=== PATIENT | female | born 1955 | race Two or more races ===

== ENCOUNTER 2022-06-14 12:56 | Inpatient (IN) | payer MEDICAID ==
[2022-06-14] VITALS (7 sets, daily range): BP systolic 144–171; BP diastolic 60–70
[~2022-06-14] VITALS: Ht 165.1 cm; Wt 64.5 kg
[2022-06-14 14:10] LABS: COVID AG,FIA SOURCE NASAL SWAB
[2022-06-14 14:19] LABS: MEAN CORPUSCULAR VOLUME 69 fL (80-100); PLATELET COUNT (AUTO) 92 K/uL (150-450); RED BLOOD CELL COUNT(AUTO) 2.91 MIL/uL (4.00-5.20); RED CELL DISTRIBUTION WIDTH 35.4 % (11.5-14.5)
[2022-06-14 14:22] LABS: ANION GAP 12 mmol/L (8-16); CALCIUM, TOTAL 8.7 mg/dL (8.8-10.5); CARBON DIOXIDE 23 mmol/L (22-29); CHLORIDE 103 mmol/L (98-107); GLOMERULAR FILTR. RATE CALC > 60 mL/min (>60); GLUCOSE,RANDOM 86 mg/dL (70-110); SODIUM SERUM 138 mmol/L (136-145); UREA NITROGEN, BLOOD 9 mg/dL (7-18)
[2022-06-14 14:25] LABS: HEMOGLOBIN 6.4 g/dL (12.0-16.0)
[2022-06-14 14:32] LABS: ALANINE AMINOTRANSFERASE 56 U/L (12-78); ALBUMIN 2.9 g/dL (3.4-5.0); ALKALINE PHOSPHATASE 149 U/L (46-116); ASPARTATE AMINOTRANSFERASE 254 U/L (15-37); BILIRUBIN,TOTAL 0.4 mg/dL (0.1-1.0); TOTAL PROTEIN, SERUM 6.2 g/dL (6.4-8.2)
[2022-06-14 14:34] LABS: LACTIC ACID 1.9 mmol/L (0.4-2.0)
[2022-06-14 14:35] LABS: INR 1.1 (0.9-1.1); PROTHROMBIN TIME 11.5 SEC (9.4-11.6)
[2022-06-14] MEDS ORDERED: MORPHINE SULFATE 4 MG/ML SYRINGE IVP ONE (14:45)
[2022-06-14] MEDS ORDERED: IOHEXOL 350 MG/ML 100 ML VIAL ONE (14:53)
[2022-06-14] MEDS ORDERED: SODIUM CHLORIDE 0.9% 100 ML ONE (14:53)
[2022-06-14 15:02] LABS: BAND NEUTROPHILS % (MANUAL) 9 % (0-5); LYMPHOCYTES % (MANUAL) 25 % (22-44); METAMYELOCYTES % 2 % (0-0); MONOCYTES % (MANUAL) 21 % (2-9); MYELOCYTES % 1 % (0-0); SEGMENTED NEUTROPHILS % 42 % (40-70)
[2022-06-14 18:23] LABS: APPEARANCE,URINE CLEAR (CLEAR); BILIRUBIN,URINE NEGATIVE (NEGATIVE); GLUCOSE, URINE (UA) NEGATIVE (NEGATIVE); KETONES,URINE NEGATIVE (NEGATIVE); LEUKOCYTE ESTERASE ,URINE NEGATIVE (NEGATIVE); NITRATE,URINE NEGATIVE (NEGATIVE); OCCULT BLOOD,URINE SMALL (NEGATIVE); PH,URINE 6.5 (5.0-8.0); PROTEIN,URINE TRACE mg/dL (NEGATIVE); SPECIFIC GRAVITIY, URINE 1.032 (1.003-1.030); UROBILINOGEN,URINE <=1.0 mg/dL (<=1.0)
[2022-06-14 18:29] LABS: BACTERIA,URINE None Seen /HPF (None Seen); RBC,URINE 0-2 /HPF (0-2); WBC,URINE 0-2 /HPF (0-5)
[2022-06-14] MEDS ORDERED: HYDROmorphone 2 MG/ML VIAL IVP ONE (18:45)
[2022-06-14] MEDS ORDERED: ACETAMINOPHEN 325 MG TABLET PO ONE (19:30)
[2022-06-14] MEDS ORDERED: ONDANSETRON HCL 4 MG/2 ML VIAL IVP PRN (23:00)
[2022-06-14] MEDS ORDERED: ZOLPIDEM TARTRATE 5 MG TABLET PO PRN (23:00)
[2022-06-14] MEDS ORDERED: IPRATROPIUM BROMIDE 0.5 MG/2.5 ML NEB SOLUTION NEB PRN (23:00)
[2022-06-14] MEDS ORDERED: MAGNESIUM HYDROXIDE SUSPENSION 30 ML UDCUP PO PRN (23:00)
[2022-06-14] MEDS ORDERED: BISACODYL 10 MG RECTAL RECTAL SUPPOSITORY PR PRN (23:00)
[2022-06-14] MEDS ORDERED: ALBUTEROL SULFATE 2.5 MG/0.5 ML NEB SOLUTION NEB PRN (23:00)
[2022-06-14 23:39] LABS: HEMATOCRIT 22.4 % (36-46); HEMOGLOBIN 7.4 g/dL (12.0-16.0); MEAN CORPUSCULAR HEMOGLOBIN 24.3 pg (26.0-34.0); MEAN CORPUSCULAR HGB CONC 33.3 G/dL (31.0-37.0); MEAN CORPUSCULAR VOLUME 73 fL (80-100); PLATELET COUNT (AUTO) 71 K/uL (150-450); RED BLOOD CELL COUNT(AUTO) 3.06 MIL/uL (4.00-5.20); RED CELL DISTRIBUTION WIDTH 35.1 % (11.5-14.5)
[2022-06-15 00:06] LABS: ALANINE AMINOTRANSFERASE 61 U/L (12-78); ALBUMIN 2.8 g/dL (3.4-5.0); ALKALINE PHOSPHATASE 151 U/L (46-116); AMYLASE 33 U/L (25-115); ANION GAP 10 mmol/L (8-16); ASPARTATE AMINOTRANSFERASE 339 U/L (15-37); BILIRUBIN,TOTAL 0.6 mg/dL (0.1-1.0); CALCIUM, TOTAL 8.7 mg/dL (8.8-10.5); CARBON DIOXIDE 24 mmol/L (22-29); CHLORIDE 101 mmol/L (98-107); CREATININE 0.77 mg/dL (0.60-1.30); GLOMERULAR FILTR. RATE CALC > 60 mL/min (>60); GLUCOSE,RANDOM 83 mg/dL (70-110); LIPASE 61 U/L (73-393); POTASSIUM 3.8 mmol/L (3.5-5.1); SODIUM SERUM 135 mmol/L (136-145); THYROID STIMULATING HORMONE 0.96 uIU/mL (0.36-3.74); TOTAL PROTEIN, SERUM 5.8 g/dL (6.4-8.2); UREA NITROGEN, BLOOD 8 mg/dL (7-18)
[2022-06-15 00:31] LABS: BAND NEUTROPHILS % (MANUAL) 4 % (0-5); BASOPHILS % (MANUAL) 1 % (0-2); LYMPHOCYTES % (MANUAL) 25 % (22-44); METAMYELOCYTES % 2 % (0-0); MONOCYTES % (MANUAL) 15 % (2-9); MYELOCYTES % 1 % (0-0); SEGMENTED NEUTROPHILS % 52 % (40-70)
[2022-06-15] MEDS: HYDROCODONE/ACETAMINOPHEN 5-325 MG TABLET PO PRN ×3 (03:07→14:37)
[2022-06-15] MEDS: PANTOPRAZOLE SODIUM 40 MG/VIAL IVP SCH (11:15)
[2022-06-15] MEDS: DOCUSATE SODIUM 100 MG CAPSULE PO SCH ×2 (11:29→20:59)
[2022-06-15 11:40] VITALS: BP 149/85
[2022-06-15 16:19] VITALS: BP 164/75
[2022-06-15] MEDS: ACETAMINOPHEN 325 MG TABLET PO PRN ×2 (16:53→21:04)
[2022-06-15 19:21] VITALS: BP 156/62
[2022-06-15 20:49] LABS: HEMATOCRIT 23.4 % (36-46); HEMOGLOBIN 7.9 g/dL (12.0-16.0); MEAN CORPUSCULAR HEMOGLOBIN 24.2 pg (26.0-34.0); MEAN CORPUSCULAR HGB CONC 33.6 G/dL (31.0-37.0); MEAN CORPUSCULAR VOLUME 72 fL (80-100); PLATELET COUNT (AUTO) 86 K/uL (150-450); RED BLOOD CELL COUNT(AUTO) 3.25 MIL/uL (4.00-5.20); RED CELL DISTRIBUTION WIDTH 34.8 % (11.5-14.5)
[2022-06-15 20:57] LABS: ANION GAP 16 mmol/L (8-16); CALCIUM, TOTAL 8.5 mg/dL (8.8-10.5); CARBON DIOXIDE 22 mmol/L (22-29); CHLORIDE 96 mmol/L (98-107); CREATININE 0.84 mg/dL (0.60-1.30); GLUCOSE,RANDOM 77 mg/dL (70-110); POTASSIUM 3.4 mmol/L (3.5-5.1); SODIUM SERUM 134 mmol/L (136-145); UREA NITROGEN, BLOOD 11 mg/dL (7-18)
[2022-06-15 20:59] LABS: GLOMERULAR FILTR. RATE CALC > 60 mL/min (>60)
[2022-06-15] MEDS: SODIUM CHLORIDE 0.9% 1,000 ML IV SCH (20:59)
[2022-06-15 21:13] LABS: BAND NEUTROPHILS % (MANUAL) 10 % (0-5); LYMPHOCYTES % (MANUAL) 13 % (22-44); METAMYELOCYTES % 1 % (0-0); MONOCYTES % (MANUAL) 17 % (2-9); MYELOCYTES % 1 % (0-0); REACTIVE LYMPHOCYTES 3 % (0-0); SEGMENTED NEUTROPHILS % 55 % (40-70)
[2022-06-15 23:20] VITALS: BP 141/52
[2022-06-16 01:36] LABS: APPEARANCE,URINE CLEAR (CLEAR); BILIRUBIN,URINE NEGATIVE (NEGATIVE); GLUCOSE, URINE (UA) NEGATIVE (NEGATIVE); KETONES,URINE 40-60 mg/dL (NEGATIVE); LEUKOCYTE ESTERASE ,URINE NEGATIVE (NEGATIVE); NITRATE,URINE NEGATIVE (NEGATIVE); OCCULT BLOOD,URINE LARGE (NEGATIVE); PH,URINE 5.5 (5.0-8.0); PROTEIN,URINE 30-70 mg/dL (NEGATIVE); SPECIFIC GRAVITIY, URINE 1.016 (1.003-1.030); UROBILINOGEN,URINE <=1.0 mg/dL (<=1.0)
[2022-06-16 01:47] LABS: AMORPHOUS SEDIMENT,UR Few /LPF (None Seen); BACTERIA,URINE None Seen /HPF (None Seen); FINE GRANULAR CASTS,URINE 0-2 /LPF (None Seen); SQUAMOUS EPITHELIAL CELL,UR Rare /LPF (None Seen)
[2022-06-16] MEDS: MORPHINE SULFATE 2 MG/ML SYRINGE IVP PRN (03:11)
[2022-06-16] MEDS: ACETAMINOPHEN 325 MG TABLET PO PRN ×2 (03:13→14:53)
[2022-06-16 05:16] VITALS: BP 147/58
[2022-06-16 07:55] VITALS: BP 138/54
[2022-06-16] MEDS: PANTOPRAZOLE SODIUM 40 MG/VIAL IVP SCH (08:20)
[2022-06-16] MEDS: DOCUSATE SODIUM 100 MG CAPSULE PO SCH ×2 (08:29→19:36)
[2022-06-16] MEDS: SODIUM CHLORIDE 0.9% 1,000 ML IV SCH ×2 (09:50→23:10)
[2022-06-16] MEDS ORDERED: SODIUM CHLORIDE 0.9% 1,000 ML ONE ×2 (09:58→15:54)
[2022-06-16] MEDS ORDERED: SODIUM CHLORIDE 0.9% 1,000 ML IV ONE (10:00)
[2022-06-16] MEDS ORDERED: ONDANSETRON HCL 4 MG/2 ML VIAL ONE (12:29)
[2022-06-16] MEDS ORDERED: PIPERACILLIN SODIUM/TAZOBACTAM 3.375 GM/VIAL TP ONE (12:30)
[2022-06-16] MEDS ORDERED: ACETAMINOPHEN 1000 MG/ISO-OSM 100 ML IV ONE (12:32)
[2022-06-16] MEDS ORDERED: ONDANSETRON HCL 4 MG/2 ML VIAL IVP ONE (12:45)
[2022-06-16] MEDS ORDERED: IOTHALAMATE MEGLUMINE 600 MG/ML 50 ML VIAL IVP ONE ×2 (12:56→12:57)
[2022-06-16] MEDS: PIPERACILLIN/TAZO 3.375 GM/D5W 50 ML IV SCH ×2 (13:44→19:35)
[2022-06-16 14:45] VITALS: BP 137/63
[2022-06-16] MEDS ORDERED: SUGAMMADEX SODIUM 200 MG/2 ML VIAL IVP ONE (16:21)
[2022-06-16] MEDS ORDERED: RINGERS SOLUTION,LACTATED 1,000 ML IV ONE (17:34)
[2022-06-16] MEDS ORDERED: KETOROLAC TROMETHAMINE 30 MG/ML VIAL ONE (17:36)
[2022-06-16] MEDS ORDERED: OXYMETAZOLINE HCL 0.05% 15 ML NASAL SPRAY NASAL ONE (17:55)
[2022-06-16] MEDS ORDERED: ALBUTEROL SULFATE 2.5 MG/0.5 ML NEB SOLUTION NEB ONE ×2 (18:12→18:15)
[2022-06-16] MEDS: RINGERS SOLUTION,LACTATED 1,000 ML IV SCH (18:45)
[2022-06-16 19:45] VITALS: BP 148/64
[2022-06-16 23:49] VITALS: BP 151/62
[2022-06-17] MEDS: RINGERS SOLUTION,LACTATED 1,000 ML IV SCH ×4 (01:25→22:37)
[2022-06-17] MEDS: PIPERACILLIN/TAZO 3.375 GM/D5W 50 ML IV SCH ×4 (01:37→20:56)
[2022-06-17 04:04] VITALS: BP 138/56
[2022-06-17] MEDS ORDERED: KETOROLAC TROMETHAMINE 60 MG/2 ML VIAL IM ONE (06:07)
[2022-06-17] MEDS ORDERED: PROPOFOL 1% 20 ML VIAL IVP ONE (06:07)
[2022-06-17] MEDS ORDERED: ROCURONIUM BROMIDE 10 MG/ML 5 ML VIAL IVP ONE (06:07)
[2022-06-17] MEDS ORDERED: GLUCAGON,HUMAN RECOMBINANT 1 MG VIAL IVP ONE (06:07)
[2022-06-17] MEDS ORDERED: ONDANSETRON HCL 4 MG/2 ML VIAL IVP ONE (06:07)
[2022-06-17] MEDS ORDERED: DEXAMETHASONE SOD PHOS 4 MG/ML VIAL IVP ONE (06:07)
[2022-06-17] MEDS ORDERED: FentaNYL CITRATE PF 100 MCG/2 ML VIAL IVP ONE (06:07)
[2022-06-17] MEDS ORDERED: LIDOCAINE/PF 2% 5 ML SYRINGE IVP ONE (06:07)
[2022-06-17] MEDS: MORPHINE SULFATE 2 MG/ML SYRINGE IVP PRN ×6 (06:09→20:55)
[2022-06-17 06:42] LABS: HEMATOCRIT 21.4 % (36-46); MEAN CORPUSCULAR HEMOGLOBIN 24.2 pg (26.0-34.0); MEAN CORPUSCULAR HGB CONC 32.5 G/dL (31.0-37.0); MEAN CORPUSCULAR VOLUME 75 fL (80-100); PLATELET COUNT (AUTO) 92 K/uL (150-450); RED BLOOD CELL COUNT(AUTO) 2.87 MIL/uL (4.00-5.20); RED CELL DISTRIBUTION WIDTH 34.5 % (11.5-14.5)
[2022-06-17 06:51] LABS: ANION GAP 16 mmol/L (8-16); CARBON DIOXIDE 19 mmol/L (22-29); CHLORIDE 104 mmol/L (98-107); CREATININE 0.89 mg/dL (0.60-1.30); GLUCOSE,RANDOM 80 mg/dL (70-110); POTASSIUM 3.7 mmol/L (3.5-5.1); SODIUM SERUM 139 mmol/L (136-145); UREA NITROGEN, BLOOD 20 mg/dL (7-18)
[2022-06-17 06:52] LABS: GLOMERULAR FILTR. RATE CALC > 60 mL/min (>60)
[2022-06-17 06:57] LABS: ALANINE AMINOTRANSFERASE 53 U/L (12-78); ALBUMIN 2.2 g/dL (3.4-5.0); ALKALINE PHOSPHATASE 231 U/L (46-116); ASPARTATE AMINOTRANSFERASE 137 U/L (15-37); BILIRUBIN,TOTAL 1.4 mg/dL (0.1-1.0); TOTAL PROTEIN, SERUM 5.4 g/dL (6.4-8.2)
[2022-06-17] MEDS: DOCUSATE SODIUM 100 MG CAPSULE PO SCH ×2 (08:21→20:59)
[2022-06-17] MEDS: HYDROCODONE/ACETAMINOPHEN 5-325 MG TABLET PO PRN ×3 (08:21→17:20)
[2022-06-17] MEDS: PANTOPRAZOLE SODIUM 40 MG/VIAL IVP SCH (08:21)
[2022-06-17 09:13] LABS: BAND NEUTROPHILS % (MANUAL) 11 % (0-5); BASOPHILS % (MANUAL) 1 % (0-2); LYMPHOCYTES % (MANUAL) 3 % (22-44); METAMYELOCYTES % 1 % (0-0); MONOCYTES % (MANUAL) 7 % (2-9); MYELOCYTES % 1 % (0-0); SEGMENTED NEUTROPHILS % 76 % (40-70)
[2022-06-17 10:45] VITALS: BP_SYST 125; BP_SYST 146; BP_DIAS 45; BP_DIAS 58
[2022-06-17] MEDS: METOPROLOL TARTRATE 25 MG TABLET PO SCH ×2 (12:12→20:56)
[2022-06-17] MEDS: SODIUM CHLORIDE 0.9% 1,000 ML IV SCH (12:12)
[2022-06-17] MEDS: SOD FERRIC GLUC COMPLX/SUCROSE 125 MG in SODIUM CHLORIDE 0.9% 100 ML IV SCH (14:22)
[2022-06-17 14:39] VITALS: BP 138/69
[2022-06-17 15:35] VITALS: BP 151/75
[2022-06-17 20:09] VITALS: BP 159/79
[2022-06-18] MEDS: MORPHINE SULFATE 2 MG/ML SYRINGE IVP PRN ×8 (00:33→20:08)
[2022-06-18 00:40] VITALS: BP 153/56
[2022-06-18] MEDS: ACETAMINOPHEN 325 MG TABLET PO PRN ×2 (01:07→20:09)
[2022-06-18] MEDS: SODIUM CHLORIDE 0.9% 1,000 ML IV SCH ×2 (02:22→15:26)
[2022-06-18] MEDS: PIPERACILLIN/TAZO 3.375 GM/D5W 50 ML IV SCH ×4 (02:22→20:09)
[2022-06-18 04:18] VITALS: BP 135/56
[2022-06-18] MEDS: RINGERS SOLUTION,LACTATED 1,000 ML IV SCH ×3 (04:52→17:25)
[2022-06-18 06:55] LABS: HEMATOCRIT 22.3 % (36-46); HEMOGLOBIN 7.6 g/dL (12.0-16.0); MEAN CORPUSCULAR HEMOGLOBIN 25.1 pg (26.0-34.0); MEAN CORPUSCULAR VOLUME 74 fL (80-100); PLATELET COUNT (AUTO) 102 K/uL (150-450); RED BLOOD CELL COUNT(AUTO) 3.03 MIL/uL (4.00-5.20)
[2022-06-18 07:14] LABS: ALANINE AMINOTRANSFERASE 78 U/L (12-78); ALBUMIN 2.3 g/dL (3.4-5.0); ALKALINE PHOSPHATASE 429 U/L (46-116); ANION GAP 13 mmol/L (8-16); ASPARTATE AMINOTRANSFERASE 232 U/L (15-37); BILIRUBIN,TOTAL 1.5 mg/dL (0.1-1.0); CALCIUM, TOTAL 8.6 mg/dL (8.8-10.5); CARBON DIOXIDE 24 mmol/L (22-29); CHLORIDE 101 mmol/L (98-107); CHOL/HDL RATIO 11.1 (3.9-5.7); CHOLESTEROL 89 mg/dL (131-200); CREATININE 0.71 mg/dL (0.60-1.30); GLUCOSE,RANDOM 84 mg/dL (70-110); HDL CHOLESTEROL 8 mg/dL (40-60); LDL CHOL (CALC.) 34 mg/dL (0-130); POTASSIUM 3.4 mmol/L (3.5-5.1); SODIUM SERUM 138 mmol/L (136-145); TOTAL PROTEIN, SERUM 5.8 g/dL (6.4-8.2); TRIGLYCERIDES 236 mg/dL (15-150); UREA NITROGEN, BLOOD 8 mg/dL (7-18)
[2022-06-18 07:16] LABS: GLOMERULAR FILTR. RATE CALC > 60 mL/min (>60)
[2022-06-18 07:19] LABS: HEMOGLOBIN A1C 4.7 % (3.8-5.6)
[2022-06-18 07:42] VITALS: BP 160/72
[2022-06-18 08:06] LABS: BAND NEUTROPHILS % (MANUAL) 13 % (0-5); LYMPHOCYTES % (MANUAL) 18 % (22-44); MONOCYTES % (MANUAL) 12 % (2-9); SEGMENTED NEUTROPHILS % 57 % (40-70)
[2022-06-18] MEDS: DOCUSATE SODIUM 100 MG CAPSULE PO SCH ×2 (08:30→20:09)
[2022-06-18] MEDS: PANTOPRAZOLE SODIUM 40 MG/VIAL IVP SCH (08:30)
[2022-06-18] MEDS: HYDROCODONE/ACETAMINOPHEN 5-325 MG TABLET PO PRN ×3 (08:30→17:20)
[2022-06-18] MEDS: METOPROLOL TARTRATE 25 MG TABLET PO SCH ×2 (08:30→20:09)
[2022-06-18 11:39] VITALS: BP 155/74
[2022-06-18] MEDS: POTASSIUM CHLORIDE 20 MEQ ER TABLET PO PRN (12:57)
[2022-06-18] MEDS ORDERED: SODIUM CHLORIDE 0.9% 100 ML ONE ×2 (13:17→13:38)
[2022-06-18] MEDS ORDERED: IOHEXOL 350 MG/ML 100 ML VIAL ONE ×2 (13:17→13:38)
[2022-06-18 14:47] VITALS: BP 158/78
[2022-06-18] MEDS: SOD FERRIC GLUC COMPLX/SUCROSE 125 MG in SODIUM CHLORIDE 0.9% 100 ML IV SCH (15:26)
[2022-06-18 19:31] VITALS: BP 150/65
[2022-06-19] MEDS: RINGERS SOLUTION,LACTATED 1,000 ML IV SCH ×2 (00:17→07:05)
[2022-06-19 00:32] VITALS: BP 131/55
[2022-06-19] MEDS: MORPHINE SULFATE 2 MG/ML SYRINGE IVP PRN ×2 (02:03→04:12)
[2022-06-19] MEDS: PIPERACILLIN/TAZO 3.375 GM/D5W 50 ML IV SCH ×4 (02:03→20:25)
[2022-06-19] MEDS: SODIUM CHLORIDE 0.9% 1,000 ML IV SCH ×2 (04:52→20:25)
[2022-06-19 04:55] VITALS: BP 159/65
[2022-06-19] MEDS: HYDROCODONE/ACETAMINOPHEN 5-325 MG TABLET PO PRN ×4 (06:43→20:26)
[2022-06-19 07:29] LABS: ALANINE AMINOTRANSFERASE 73 U/L (12-78); ALBUMIN 2.1 g/dL (3.4-5.0); ALKALINE PHOSPHATASE 366 U/L (46-116); ANION GAP 12 mmol/L (8-16); ASPARTATE AMINOTRANSFERASE 298 U/L (15-37); BILIRUBIN,TOTAL 0.9 mg/dL (0.1-1.0); CALCIUM, TOTAL 8.4 mg/dL (8.8-10.5); CARBON DIOXIDE 22 mmol/L (22-29); CHLORIDE 99 mmol/L (98-107); CREATININE 0.64 mg/dL (0.60-1.30); GLUCOSE,RANDOM 82 mg/dL (70-110); POTASSIUM 3.5 mmol/L (3.5-5.1); SODIUM SERUM 133 mmol/L (136-145); TOTAL PROTEIN, SERUM 5.3 g/dL (6.4-8.2); UREA NITROGEN, BLOOD 7 mg/dL (7-18)
[2022-06-19 07:31] LABS: GLOMERULAR FILTR. RATE CALC > 60 mL/min (>60)
[2022-06-19] MEDS: PANTOPRAZOLE SODIUM 40 MG/VIAL IVP SCH (08:39)
[2022-06-19] MEDS: DOCUSATE SODIUM 100 MG CAPSULE PO SCH ×2 (08:40→20:26)
[2022-06-19] MEDS: METOPROLOL TARTRATE 25 MG TABLET PO SCH ×2 (08:40→20:26)
[2022-06-19] MEDS: SOD FERRIC GLUC COMPLX/SUCROSE 125 MG in SODIUM CHLORIDE 0.9% 100 ML IV SCH (17:10)
[2022-06-19 20:12] VITALS: BP 151/70
[2022-06-20] VITALS (8 sets, daily range): BP systolic 137–191; BP diastolic 54–94
[2022-06-20] MEDS: HYDROCODONE/ACETAMINOPHEN 5-325 MG TABLET PO PRN ×5 (00:39→20:34)
[2022-06-20] MEDS: PIPERACILLIN/TAZO 3.375 GM/D5W 50 ML IV SCH ×4 (02:12→20:35)
[2022-06-20] MEDS: SODIUM CHLORIDE 0.9% 1,000 ML IV SCH ×2 (06:53→20:35)
[2022-06-20] MEDS: METOPROLOL TARTRATE 25 MG TABLET PO SCH (09:26)
[2022-06-20] MEDS: DOCUSATE SODIUM 100 MG CAPSULE PO SCH ×2 (09:26→20:34)
[2022-06-20] MEDS: PANTOPRAZOLE SODIUM 40 MG/VIAL IVP SCH (09:26)
[2022-06-20] MEDS: MORPHINE SULFATE 2 MG/ML SYRINGE IVP PRN ×3 (15:06→22:49)
[2022-06-20] MEDS: SOD FERRIC GLUC COMPLX/SUCROSE 125 MG in SODIUM CHLORIDE 0.9% 100 ML IV SCH (15:34)
[2022-06-20] MEDS: METOPROLOL TARTRATE 50 MG TABLET PO SCH (20:34)
[2022-06-21] VITALS (7 sets, daily range): BP systolic 136–199; BP diastolic 56–85
[2022-06-21] MEDS: HYDROCODONE/ACETAMINOPHEN 5-325 MG TABLET PO PRN ×4 (00:13→15:27)
[2022-06-21] MEDS: MORPHINE SULFATE 2 MG/ML SYRINGE IVP PRN ×10 (00:52→20:32)
[2022-06-21] MEDS: PIPERACILLIN/TAZO 3.375 GM/D5W 50 ML IV SCH ×4 (01:39→20:32)
[2022-06-21] MEDS: PANTOPRAZOLE SODIUM 40 MG/VIAL IVP SCH (08:13)
[2022-06-21] MEDS: METOPROLOL TARTRATE 50 MG TABLET PO SCH ×2 (08:14→20:32)
[2022-06-21] MEDS: AmLODIPine BESYLATE 5 MG TABLET PO SCH (08:14)
[2022-06-21] MEDS: DOCUSATE SODIUM 100 MG CAPSULE PO SCH ×2 (08:14→20:32)
[2022-06-21] MEDS: SODIUM CHLORIDE 0.9% 1,000 ML IV SCH ×2 (09:13→22:51)
[2022-06-21] MEDS: SOD FERRIC GLUC COMPLX/SUCROSE 125 MG in SODIUM CHLORIDE 0.9% 100 ML IV SCH (13:41)
[2022-06-22] VITALS (10 sets, daily range): BP systolic 110–175; BP diastolic 48–72
[2022-06-22] MEDS: PIPERACILLIN/TAZO 3.375 GM/D5W 50 ML IV SCH ×4 (01:27→10:40)
[2022-06-22] MEDS: HYDROCODONE/ACETAMINOPHEN 5-325 MG TABLET PO PRN ×4 (08:44→20:56)
[2022-06-22] MEDS: METOPROLOL TARTRATE 50 MG TABLET PO SCH ×3 (08:45→20:55)
[2022-06-22] MEDS: DOCUSATE SODIUM 100 MG CAPSULE PO SCH ×3 (08:45→20:55)
[2022-06-22] MEDS: AmLODIPine BESYLATE 5 MG TABLET PO SCH ×2 (08:45→10:40)
[2022-06-22] MEDS: PANTOPRAZOLE SODIUM 40 MG/VIAL IVP SCH ×3 (08:45→20:55)
[2022-06-22] MEDS ORDERED: SODIUM CHLORIDE 0.9% 500 ML IV ONE ×2 (10:25→14:41)
[2022-06-22] MEDS: MORPHINE SULFATE 2 MG/ML SYRINGE IVP PRN (10:41)
[2022-06-22 11:51] LABS: MEAN CORPUSCULAR HEMOGLOBIN 24.8 pg (26.0-34.0); MEAN CORPUSCULAR HGB CONC 33.3 G/dL (31.0-37.0); MEAN CORPUSCULAR VOLUME 75 fL (80-100); PLATELET COUNT (AUTO) 93 K/uL (150-450); RED BLOOD CELL COUNT(AUTO) 2.24 MIL/uL (4.00-5.20); RED CELL DISTRIBUTION WIDTH 32.1 % (11.5-14.5)
[2022-06-22 12:05] LABS: HEMATOCRIT 16.7 % (36-46); HEMOGLOBIN 5.6 g/dL (12.0-16.0)
[2022-06-22 12:06] LABS: ALANINE AMINOTRANSFERASE 44 U/L (12-78); ALBUMIN 1.7 g/dL (3.4-5.0); ALKALINE PHOSPHATASE 348 U/L (46-116); ANION GAP 12 mmol/L (8-16); ASPARTATE AMINOTRANSFERASE 178 U/L (15-37); BILIRUBIN,TOTAL 0.8 mg/dL (0.1-1.0); C-REACTIVE PROTEIN QUANT 20.21 mg/dL (0.00-0.30); CALCIUM, TOTAL 8.2 mg/dL (8.8-10.5); CARBON DIOXIDE 23 mmol/L (22-29); CHLORIDE 95 mmol/L (98-107); CREATININE 0.59 mg/dL (0.60-1.30); GLUCOSE,RANDOM 100 mg/dL (70-110); SODIUM SERUM 130 mmol/L (136-145); TOTAL PROTEIN, SERUM 4.9 g/dL (6.4-8.2); UREA NITROGEN, BLOOD 8 mg/dL (7-18)
[2022-06-22 12:12] LABS: GLOMERULAR FILTR. RATE CALC > 60 mL/min (>60); POTASSIUM 2.5 mmol/L (3.5-5.1)
[2022-06-22 12:30] LABS: MEAN CORPUSCULAR HEMOGLOBIN 24.9 pg (26.0-34.0); MEAN CORPUSCULAR HGB CONC 33.5 G/dL (31.0-37.0); MEAN CORPUSCULAR VOLUME 74 fL (80-100); PLATELET COUNT (AUTO) 94 K/uL (150-450); RED BLOOD CELL COUNT(AUTO) 2.31 MIL/uL (4.00-5.20); RED CELL DISTRIBUTION WIDTH 31.4 % (11.5-14.5)
[2022-06-22 12:31] LABS: BAND NEUTROPHILS % (MANUAL) 42 % (0-5); EOSINOPHILS % (MANUAL) 2 % (1-6); LYMPHOCYTES % (MANUAL) 22 % (22-44); MONOCYTES % (MANUAL) 9 % (2-9); SEGMENTED NEUTROPHILS % 25 % (40-70)
[2022-06-22 12:37] LABS: HEMOGLOBIN 5.7 g/dL (12.0-16.0)
[2022-06-22 12:38] LABS: HEMATOCRIT 17.2 % (36-46)
[2022-06-22 12:40] LABS: MAGNESIUM 1.4 mg/dL (1.80-2.40); PHOSPHORUS 2.4 mg/dL (2.5-4.9)
[2022-06-22 12:42] LABS: POTASSIUM 2.4 mmol/L (3.5-5.1)
[2022-06-22] MEDS: SODIUM CHLORIDE 0.9% 1,000 ML IV SCH (12:45)
[2022-06-22] MEDS ORDERED: MAGNESIUM SULFATE 4 GM/WATER 100 ML IV PRN (17:30)
[2022-06-22] MEDS ORDERED: MAGNESIUM SULFATE 2 GM/WATER 50 ML IV PRN (17:30)
[2022-06-22] MEDS ORDERED: MAGNESIUM OXIDE 400 MG TABLET PO PRN (17:30)
[2022-06-22] MEDS: ACETAMINOPHEN 325 MG TABLET PO PRN (19:50)
[2022-06-22] MEDS: POTASSIUM CHL 10 MEQ/WATER 50 ML IV PRN ×2 (20:57→22:31)
[2022-06-23] MEDS: POTASSIUM CHL 10 MEQ/WATER 50 ML IV PRN ×6 (00:31→11:25)
[2022-06-23 00:58] VITALS: BP 128/55
[2022-06-23] MEDS: HYDROCODONE/ACETAMINOPHEN 5-325 MG TABLET PO PRN ×5 (01:49→23:57)
[2022-06-23 04:41] VITALS: BP 145/54
[2022-06-23 06:33] LABS: HEMATOCRIT 22.3 % (36-46); HEMOGLOBIN 7.6 g/dL (12.0-16.0); MEAN CORPUSCULAR HEMOGLOBIN 25.6 pg (26.0-34.0); MEAN CORPUSCULAR VOLUME 75 fL (80-100); PLATELET COUNT (AUTO) 89 K/uL (150-450); RED BLOOD CELL COUNT(AUTO) 2.96 MIL/uL (4.00-5.20); RED CELL DISTRIBUTION WIDTH 28.3 % (11.5-14.5)
[2022-06-23 06:41] LABS: ALANINE AMINOTRANSFERASE 40 U/L (12-78); ALBUMIN 1.8 g/dL (3.4-5.0); ALKALINE PHOSPHATASE 288 U/L (46-116); ANION GAP 9 mmol/L (8-16); ASPARTATE AMINOTRANSFERASE 136 U/L (15-37); BILIRUBIN,TOTAL 0.8 mg/dL (0.1-1.0); C-REACTIVE PROTEIN QUANT 18.54 mg/dL (0.00-0.30); CALCIUM, TOTAL 8.4 mg/dL (8.8-10.5); CARBON DIOXIDE 26 mmol/L (22-29); CHLORIDE 98 mmol/L (98-107); CREATININE 0.64 mg/dL (0.60-1.30); GLUCOSE,RANDOM 91 mg/dL (70-110); SODIUM SERUM 133 mmol/L (136-145); UREA NITROGEN, BLOOD 9 mg/dL (7-18)
[2022-06-23 06:42] LABS: GLOMERULAR FILTR. RATE CALC > 60 mL/min (>60)
[2022-06-23 06:43] LABS: POTASSIUM 2.8 mmol/L (3.5-5.1)
[2022-06-23 07:19] VITALS: BP 181/71
[2022-06-23] MEDS: METOPROLOL TARTRATE 50 MG TABLET PO SCH ×2 (07:53→20:50)
[2022-06-23] MEDS: AmLODIPine BESYLATE 5 MG TABLET PO SCH (07:54)
[2022-06-23] MEDS: DOCUSATE SODIUM 100 MG CAPSULE PO SCH ×2 (07:54→20:50)
[2022-06-23] MEDS: PANTOPRAZOLE SODIUM 40 MG/VIAL IVP SCH (07:58)
[2022-06-23 08:40] LABS: BAND NEUTROPHILS % (MANUAL) 20 % (0-5); EOSINOPHILS % (MANUAL) 2 % (1-6); LYMPHOCYTES % (MANUAL) 20 % (22-44); MONOCYTES % (MANUAL) 10 % (2-9); MYELOCYTES % 3 % (0-0); PLATELET MORPHOLOGY COMMENT GIANT PLTS PRESENT; SEGMENTED NEUTROPHILS % 45 % (40-70)
[2022-06-23 11:23] VITALS: BP 141/70
[2022-06-23 15:20] VITALS: BP 146/82
[2022-06-23 19:44] VITALS: BP 179/78
[2022-06-23] MEDS: PANTOPRAZOLE SODIUM 40 MG DR TABLET PO SCH (20:49)
[2022-06-24 00:07] VITALS: BP 172/75
[2022-06-24] MEDS: HYDROCODONE/ACETAMINOPHEN 5-325 MG TABLET PO PRN ×5 (03:59→21:27)
[2022-06-24 04:24] VITALS: BP 179/71
[2022-06-24] MEDS ORDERED: AmLODIPine BESYLATE 5 MG TABLET PO ONE (06:00)
[2022-06-24 06:40] LABS: HEMATOCRIT 21.3 % (36-46); HEMOGLOBIN 7.4 g/dL (12.0-16.0); MEAN CORPUSCULAR HEMOGLOBIN 25.7 pg (26.0-34.0); MEAN CORPUSCULAR HGB CONC 34.5 G/dL (31.0-37.0); MEAN CORPUSCULAR VOLUME 74 fL (80-100); PLATELET COUNT (AUTO) 77 K/uL (150-450); RED BLOOD CELL COUNT(AUTO) 2.86 MIL/uL (4.00-5.20)
[2022-06-24 07:25] LABS: ALANINE AMINOTRANSFERASE 40 U/L (12-78); ALBUMIN 1.8 g/dL (3.4-5.0); ALKALINE PHOSPHATASE 308 U/L (46-116); ANION GAP 13 mmol/L (8-16); ASPARTATE AMINOTRANSFERASE 162 U/L (15-37); BILIRUBIN,TOTAL 0.7 mg/dL (0.1-1.0); C-REACTIVE PROTEIN QUANT 14.63 mg/dL (0.00-0.30); CALCIUM, TOTAL 8.5 mg/dL (8.8-10.5); CARBON DIOXIDE 22 mmol/L (22-29); CHLORIDE 97 mmol/L (98-107); CREATININE 0.55 mg/dL (0.60-1.30); GLUCOSE,RANDOM 79 mg/dL (70-110); POTASSIUM 3.3 mmol/L (3.5-5.1); SODIUM SERUM 132 mmol/L (136-145); TOTAL PROTEIN, SERUM 5.1 g/dL (6.4-8.2); UREA NITROGEN, BLOOD 8 mg/dL (7-18)
[2022-06-24 07:55] VITALS: BP 182/76
[2022-06-24 07:58] LABS: GLOMERULAR FILTR. RATE CALC > 60 mL/min (>60)
[2022-06-24] MEDS: DOCUSATE SODIUM 100 MG CAPSULE PO SCH ×2 (08:04→20:26)
[2022-06-24] MEDS: PANTOPRAZOLE SODIUM 40 MG DR TABLET PO SCH ×2 (08:05→20:25)
[2022-06-24] MEDS: METOPROLOL TARTRATE 50 MG TABLET PO SCH ×2 (08:05→20:26)
[2022-06-24] MEDS: AmLODIPine BESYLATE 5 MG TABLET PO SCH (08:05)
[2022-06-24 08:09] LABS: BAND NEUTROPHILS % (MANUAL) 24 % (0-5); LYMPHOCYTES % (MANUAL) 4 % (22-44); MONOCYTES % (MANUAL) 10 % (2-9); SEGMENTED NEUTROPHILS % 62 % (40-70)
[2022-06-24] MEDS ORDERED: AmLODIPine BESYLATE 5 MG TABLET PO SCH (09:00)
[2022-06-24] MEDS ORDERED: IOHEXOL 350 MG/ML 75 ML VIAL ONE (11:59)
[2022-06-24] MEDS ORDERED: SODIUM CHLORIDE 0.9% 100 ML ONE (11:59)
[2022-06-24] MEDS: POTASSIUM CHLORIDE 20 MEQ ER TABLET PO PRN (12:04)
[2022-06-24 15:19] VITALS: BP 164/73
[2022-06-24 20:46] VITALS: BP 169/64
[2022-06-25 00:26] VITALS: BP 149/78
[2022-06-25] MEDS: HYDROCODONE/ACETAMINOPHEN 5-325 MG TABLET PO PRN ×2 (02:51→08:24)
[2022-06-25 04:26] VITALS: BP 158/66
[2022-06-25 06:45] LABS: HEMOGLOBIN 7.2 g/dL (12.0-16.0); MEAN CORPUSCULAR HEMOGLOBIN 25.7 pg (26.0-34.0); MEAN CORPUSCULAR HGB CONC 34.1 G/dL (31.0-37.0); MEAN CORPUSCULAR VOLUME 75 fL (80-100); PLATELET COUNT (AUTO) 71 K/uL (150-450); RED BLOOD CELL COUNT(AUTO) 2.78 MIL/uL (4.00-5.20); RED CELL DISTRIBUTION WIDTH 27.3 % (11.5-14.5)
[2022-06-25 07:30] VITALS: BP 172/82
[2022-06-25 07:33] LABS: ALANINE AMINOTRANSFERASE 37 U/L (12-78); ALBUMIN 1.7 g/dL (3.4-5.0); ALKALINE PHOSPHATASE 285 U/L (46-116); ANION GAP 8 mmol/L (8-16); ASPARTATE AMINOTRANSFERASE 140 U/L (15-37); BILIRUBIN,TOTAL 0.7 mg/dL (0.1-1.0); C-REACTIVE PROTEIN QUANT 14.87 mg/dL (0.00-0.30); CALCIUM, TOTAL 8.6 mg/dL (8.8-10.5); CARBON DIOXIDE 24 mmol/L (22-29); CHLORIDE 97 mmol/L (98-107); CREATININE 0.56 mg/dL (0.60-1.30); GLUCOSE,RANDOM 84 mg/dL (70-110); POTASSIUM 3.6 mmol/L (3.5-5.1); SODIUM SERUM 129 mmol/L (136-145); TOTAL PROTEIN, SERUM 5.1 g/dL (6.4-8.2); UREA NITROGEN, BLOOD 8 mg/dL (7-18)
[2022-06-25 07:37] LABS: GLOMERULAR FILTR. RATE CALC > 60 mL/min (>60)
[2022-06-25] MEDS: DOCUSATE SODIUM 100 MG CAPSULE PO SCH (08:24)
[2022-06-25] MEDS: METOPROLOL TARTRATE 50 MG TABLET PO SCH (08:24)
[2022-06-25] MEDS: AmLODIPine BESYLATE 5 MG TABLET PO SCH (08:24)
[2022-06-25] MEDS: PANTOPRAZOLE SODIUM 40 MG DR TABLET PO SCH (08:24)
[2022-06-25 08:57] LABS: BAND NEUTROPHILS % (MANUAL) 23 % (0-5); LYMPHOCYTES % (MANUAL) 7 % (22-44); MONOCYTES % (MANUAL) 12 % (2-9); SEGMENTED NEUTROPHILS % 58 % (40-70)
[2022-06-25] MEDS ORDERED: METO50 PO (10:01)
[2022-06-25] MEDS ORDERED: AMLO-258 PO (10:02)
[2022-06-25 11:32] VITALS: BP 137/64
== END 2022-06-25 13:00 | disposition home or self-care (01) | DRG 720 ==
LOC: EMS 12:56 → 5S 06-15 06:05
PROVIDERS: ADMIT Hospitalist; ATTEND Hospitalist
PROC: BF101ZZ Fluoroscopy of Bile Ducts using Low Osmolar Contrast (ICD-10-PCS; 2022-06-16)
PROC: 0DQ68ZZ Repair Stomach, Via Natural or Artificial Opening Endoscopic (ICD-10-PCS; principal; 2022-06-16 16:20)
PROC: 30233N1 Transfusion of Nonautologous Red Blood Cells into Peripheral Vein, Percutaneous Approach (ICD-10-PCS; 2022-06-22)
DX: A41.9 Sepsis, unspecified organism (principal); R65.21 Severe sepsis with septic shock; I21.A1 Myocardial infarction type 2; K85.90 Acute pancreatitis without necrosis or infection, unspecified; D69.6 Thrombocytopenia, unspecified; E87.1 Hypo-osmolality and hyponatremia; D63.8 Anemia in other chronic diseases classified elsewhere; D73.5 Infarction of spleen; R62.7 Adult failure to thrive; E83.42 Hypomagnesemia; K92.1 Melena; E87.6 Hypokalemia; R79.89 Other specified abnormal findings of blood chemistry; Z20.822 Contact with and (suspected) exposure to COVID-19; K80.30 Calculus of bile duct with cholangitis, unspecified, without obstruction; I10 Essential (primary) hypertension; K40.20 Bilateral inguinal hernia, without obstruction or gangrene, not specified as recurrent; Z90.49 Acquired absence of other specified parts of digestive tract; Z68.23 Body mass index [BMI] 23.0-23.9, adult; Z91.19 Patient's noncompliance with other medical treatment and regimen
CPT/HCPCS: 71045; 74018; 74177; 74181; 76001; 80048; 80053; 80061; 81001; 82150; 82271; 83036; 83605; 83690; 83735; 84100; 84132; 84443; 84484; 85025; 85610; 85730; 86140; 86850; 86900; 86901; 86923; 87040; 93005; 93306; 94640; 97116; 97530; 99291; C9113; J0131; J0690; J1100; J1170; J1610; J1885; J2270; J2405; J2543; J2704; J2916; J3010; J3475; J3480; J3490; J7030; J7040; J7050; J7120; P9016; Q9961; Q9967; 36415-L1; 36415-TC; J7613